=== PATIENT | female | born 1940 | race Caucasian/White ===

== ENCOUNTER 2017-05-15 10:20 | Inpatient (IN) | payer MEDICARE, OTHER ==
[~2017-05-15] VITALS: Ht 157.5 cm; Wt 75.7 kg
[2017-05-15] VITALS (27 sets, daily range): BP systolic 92–148; BP diastolic 46–64; PULSE 46–145; RESP 14–25; Ht 157.5 cm; Wt 75.7 kg
[~2017-05-15 10:20] MED LIST: CEFAZOLIN 2 GM/50 ML (PMX) 50 ML IVPB ONE; SOD CHLORIDE 0.9% 1,000 ML IV ONE
[2017-05-15] MEDS ORDERED: ATEN50TA PO (10:49)
[2017-05-15] MEDS ORDERED: ASPI-664 PO (10:50)
[2017-05-15] MEDS ORDERED: THROMBIN 5000 UNIT VIAL ONE (12:20)
[2017-05-15] MEDS ORDERED: HYDROmorphONE (0.2 MG/ML) 10ML SYG IV PRN ×3 (12:30)
[2017-05-15] MEDS ORDERED: EPHEDrine SULFATE 50 MG/5 ML SYG IV PRN (12:30)
[2017-05-15] MEDS ORDERED: MEPERIDINE 25 MG INJ IV PRN (12:30)
[2017-05-15] MEDS ORDERED: KETOROLAC 30 MG INJ IV PRN (12:30)
[2017-05-15] MEDS ORDERED: FENTAnyl 50 MCG/ML VIAL IV PRN ×3 (12:30)
[2017-05-15] MEDS ORDERED: METOCLOPRAMIDE 10 MG INJ IV PRN (12:30)
[2017-05-15] MEDS ORDERED: hydrALAzine 20 MG INJ IV PRN ×2 (12:30→15:00)
[2017-05-15] MEDS ORDERED: OXYCODONE/ACETAMINOPHEN (5/325) TAB PO PRN ×2 (12:30)
[2017-05-15] MEDS ORDERED: ONDANSETRON 4 MG INJ IV PRN ×2 (12:30→14:30)
[2017-05-15] MEDS ORDERED: LABETALOL HCL 20MG INJ IV PRN (12:30)
[2017-05-15] MEDS ORDERED: DIPHENHYDRAMINE 50 MG INJ IV PRN (12:30)
[2017-05-15] MEDS ORDERED: FENTAnyl 50 MCG/ML VIAL ONE (12:43)
[2017-05-15] MEDS ORDERED: ROCURONIUM 50 MG INJ ONE (12:45)
[2017-05-15] MEDS ORDERED: LIDOCAINE 2% (SDV) 5 ML INJ ONE (12:45)
[2017-05-15] MEDS ORDERED: PROPOFOL 20 ML ONE (12:45)
[2017-05-15] MEDS ORDERED: DEXAMETHASONE 4 MG/ML 1 ML INJ ONE (12:46)
[2017-05-15] MEDS ORDERED: CEFAZOLIN 1 GM INJ ONE (12:48)
[2017-05-15] MEDS ORDERED: ONDANSETRON 4 MG INJ ONE (13:56)
[2017-05-15] MEDS ORDERED: NEOSTIGMINE 3 MG/3 ML SYRINGE ONE (13:58)
[2017-05-15] MEDS ORDERED: GLYCOPYRROLATE 0.4 MG INJ ONE (13:58)
[2017-05-15] MEDS ORDERED: ACETAMINOPHEN 1000MG/100ML IV 100 ML IVPB PRN (14:30)
[2017-05-15] MEDS ORDERED: morphine 2 MG INJ IV PRN (14:30)
[2017-05-15] MEDS: D5W-0.45 NACL + KCL 20 MEQ 1,000 ML IV SCH ×2 (14:44→22:23)
--- NOTE | 2017-05-15 15:40 | HP ---
DATE OF ADMISSION: 05/15/2017 HISTORY OF PRESENT ILLNESS: The patient is a 76-year-old female with past medical history positive for hypertension, hyperlipidemia, cardiac a arrhythmia, arthritis, bladder incontinence and depression. The patient was evaluated for multi- ezio thyroid goiter, hypercalcemia, and diagnosed with hyperparathyroidism. The patient was and was evaluated by Dr. Mackenzie in surgical consultation and patient was brought to the hospital and underwent left neck exploration and parathyroid adenoma excision for left parathyroid adenoma. Postoperatively, the patient experienced significant pain, and patient will be admitted for further evaluation and management. PAST MEDICAL HISTORY: Per HPI. PAST SURGICAL HISTORY: Status post tonsillectomy at this time. FAMILY HISTORY: Noncontributory. SOCIAL HISTORY: Patient lives at home with her family. Patient denies any tobacco use, alcohol use and no illicit drug use. ALLERGIES: NO KNOWN ALLERGIES. MEDICATIONS: Includes aspirin, atenolol, simvastatin and lisinopril and vitamin-D supplements. REVIEW OF SYSTEMS: A 12 point review of system is negative unless mentioned in HPI. PHYSICAL EXAMINATION: GENERAL: Well-developed, well-nourished female, currently is awake, alert. VITAL SIGNS: Temperature is 98, pulse is 57, blood pressure 103/46, respiratory rate 14. Oxygen saturation 98 percent on 2 L nasal cannula. HEENT: Head is atraumatic, normocephalic. Pupils equal, round, reactive to light and accommodation. Oral mucosa is pink and moist. NECK: Supple. The surgical incision at the base of the neck was intact with clean dry dressing. LUNGS: Clear bilaterally. There is no rhonchi, wheezes, rales noted. CARDIAC: Normal S1, S2. No murmurs, gallops, clicks, rubs noted. Regular rate and rate and slightly bradycardic. ABDOMEN: Round, soft, nondistended, nontender. Bowel sounds present. There is no guarding, no rebound tenderness. EXTREMITIES: No edema, clubbing, cyanosis. Pulses equal bilaterally 2+. SKIN: No rash. No petechiae noted. NEUROLOGICAL: Patient is awake, alert, and oriented to name and situation. ASSESSMENT AND PLAN: 1. Left parathyroid adenoma status post-resection. Will continue Tylenol and morphine as needed for pain and Zofran as needed for nausea. Continue IV fluids. Monitor serum calcium level, CMP, and CBC tomorrow. Advance diet per surgical recommendations. 2. Hypertension. Continue atenolol and hydralazine as needed for systolic blood pressure above 170. 3. Hyperlipidemia. 4. Sequential compression device for deep venous thrombosis prophylaxis. 5. Further recommendations based on clinical course. 6. Plan of care discussed with Dr. Spencer. Dictated By: Josefina Grimes NP /dianne/elieser /Document#: [id number]
--- NOTE | 2017-05-15 18:28 | OPR ---
DATE OF OPERATION: 05/15/2017 PREOPERATIVE DIAGNOSIS: Left parathyroid adenoma. POSTOPERATIVE DIAGNOSIS: Left parathyroid adenoma. PROCEDURES: Left neck exploration with resection of left parathyroid adenoma. ANESTHESIA: General. ANESTHESIOLOGIST: Dr. Wright. SURGEON: Dr. Mackenzie. MECHANICAL MANUFACTURING ENGINEER: Dr. Eliseo Yost. INDICATIONS FOR PROCEDURE: The patient is a 76-year-old who female presented with hypercalcemia and evidence of elevated parathormone level. I discussed the case with Dr. Kauffman, her owner professional engineer, who recommended we proceed with a left neck exploration and parathyroid resection of the parathyroid adenoma. The patient consented and was scheduled for surgery. OPERATIVE PROCEDURE: The patient was brought to the operating theater and placed under general anesthesia. The left anterior cervical region was prepped and draped in usual sterile fashion. Planned incision was demarcated with a marking pen approximately 2 cm above the clavicle extending for 4 cm on either side of the midline. It was carried out with 15 blade scalpel. Subcutaneous tissue was dissected with cautery down through the platysma muscles bilaterally. Sub platysmal flaps were then developed with cautery, first superiorly to the hyoid bone, then inferiorly to the clavicle and the sternal notch. The Forrester neck retractor was then placed in the median raphae was then incised longitudinally. This allowed exposure of the under lying strap muscles covering the thyroid gland. With meticulous dissection, the strap muscles were dissected off of the left thyroid lobe. The left thyroid lobe was mobilized from medially. With thorough inspection of a parathyroid adenoma was identified at the superior pole. It was officially resected from the surrounding tissue. Significant vascular structures were controlled with the LigaSure device. It was sent for intraoperative frozen section, performed by attending pathologist, Dr. Gilles Hoover, and it was confirmed that it was hypercellular parathyroid tissue consistent with an adenoma. Dr. Mackenzie then explored the lower pole and a normal parathyroid gland was identified and left in place. The thyroid gland was then put back into its normal anatomic location underneath the strap muscles and final inspection took place. There was no evidence of bleeding. The midline medial raphae was then reapproximated with 4-0 Vicryl sutures in interrupted fashion. The platysma muscles were also reapproximated with 4-0 Vicryl sutures in interrupted fashion. The final skin approximation took place with 5-0 PDS sutures in subcuticular fashion. Benzoin and Steri-Strips were then applied. The patient tolerated the procedure well. ESTIMATED BLOOD LOSS: 20 mL. COMPLICATIONS: There were no complications. The patient was transported in stable condition to the recovery room. Dictated By: Harris Mackenzie MD /dianne/roe /Document#: [id number]
[2017-05-15 19:42] LABS: CALCIUM 10.5 mg/dl (8.4-10.2); CREATININE 0.77 mg/dl (0.44-1.00); MAGNESIUM 1.9 mg/dl (1.7-2.5); POTASSIUM 4.5 mmol/L (3.5-5.1)
[2017-05-16] VITALS (11 sets, daily range): BP systolic 109–131; BP diastolic 56–61; PULSE 48–80; RESP 17–20
[2017-05-16] MEDS: D5W-0.45 NACL + KCL 20 MEQ 1,000 ML IV SCH (06:03)
[2017-05-16 08:42] LABS: BASOPHILS % 0.1 % (0.0-2.0); EOSINOPHILS % 0.1 % (0.0-7.0); HEMATOCRIT 34.9 % (37.0-47.0); LYMPHOCYTES # 0.9 10^3/ul (0.8-2.9); LYMPHOCYTES % 11.1 % (15.0-51.0); MEAN CORPUSCULAR HEMOGLOBIN 30.9 pg (29.0-33.0); MEAN CORPUSCULAR HGB CONC 34.4 g/dl (32.0-37.0); MEAN CORPUSCULAR VOLUME 89.9 fl (82.0-101.0); MEAN PLATELET VOLUME 10.3 fl (7.4-10.4); MONOCYTE # 0.6 10^3/ul (0.3-0.9); NEUTROPHIL # 6.6 10^3/ul (1.6-7.5); NEUTROPHILS % 81.3 % (39.0-77.0); PLATELET COUNT 139 10^3/UL (140-415); RED BLOOD COUNT 3.88 10^6/ul (4.20-5.40); RED CELL DISTRIBUTION WIDTH 12.9 % (11.5-14.5); WHITE BLOOD COUNT 8.2 10^3/ul (4.8-10.8)
[2017-05-16 08:57] LABS: ALBUMIN 3.2 g/dl (3.3-4.9); ALBUMIN/GLOBULIN RATIO 1.18; BILIRUBIN,INDIRECT 2.5 mg/dl (0-1.1); BILIRUBIN,TOTAL 2.5 mg/dl (0.2-1.3); CALCIUM 10.8 mg/dl (8.4-10.2); CREATININE 0.73 mg/dl (0.44-1.00); POTASSIUM 4.4 mmol/L (3.5-5.1); TOTAL PROTEIN 5.9 g/dl (6.1-8.1)
[2017-05-16] MEDS ORDERED: ATENOLOL 50 MG TAB PO SCH (09:00)
--- NOTE | 2017-05-16 13:06 | CONS ---
Date/Time of Note Date/Time of Note DATE: 05/16/17 TIME: 13:04 Assessment/Plan Assessment/Plan Additional Assessment/Plan s/p parathyroid adenoma excision HTN Sinsu bradycardia PVCs -decrease atenolol due to bradycardia but no symptoms s/p HR 39 -no advanced heart block -check electrolytes -will monitor on telemetry Consultation Date/Type/Reason Admit Date/Time May 15, 2017 at 16:03 Hx of Present Illness The patient is a 76-year-old female with past medical history positive for hypertension, hyperlipidemia, cardiac a arrhythmia, arthritis, bladder incontinence and depression. The patient was evaluated for multi- ezio thyroid goiter, hypercalcemia, and diagnosed with hyperparathyroidism. The patient was and was evaluated by Dr. Mackenzie in surgical consultation and patient was brought to the hospital and underwent left neck exploration and parathyroid adenoma excision for left parathyroid adenoma. Postoperatively, the patient experienced significant pain, and patient will be admitted for further evaluation and management. The patient had sinus bradycardia and occasional pvcs with no sycnope or dizziness Social History Smoking Status: Never smoker Exam/Review of Systems Vital Signs Vitals Vital Signs Date Time Temp Pulse Resp B/P Pulse Ox O2 Delivery O2 Flow Rate FiO2 05/16/17 12:26 54 05/16/17 11:25 97.8 17 119/56 98 05/16/17 00:00 Nasal Cannula 2.0 Intake and Output 05/15/17 05/15/17 05/16/17 15:00 23:00 07:00 Intake Total 600 ml 688 ml 938 ml Output Total 15 ml Balance 585 ml 688 ml 938 ml Results Result Diagram: 05/16/17 0757 05/16/17 0757 Results 24 hrs Laboratory Tests Test 05/15/17 18:46 05/16/17 00:41 05/16/17 07:57 Sodium Level 142 139 Potassium Level 4.5 4.4 Chloride Level 110 109 Carbon Dioxide Level 25 26 Anion Gap 12 8 Blood Urea Nitrogen 16 12 Creatinine 0.77 0.73 Glucose Level 159 113 # Calcium Level 10.5 H 10.7 H 10.8 H Magnesium Level 1.9 White Blood Count 8.2 Red Blood Count 3.88 L Hemoglobin 12.0 Hematocrit 34.9 L Mean Corpuscular Volume 89.9 Mean Corpuscular Hemoglobin 30.9 Mean Corpuscular Hemoglobin Concent 34.4 Red Cell Distribution Width 12.9 Platelet Count 139 L Mean Platelet Volume 10.3 Neutrophils % 81.3 H Lymphocytes % 11.1 L Monocytes % 7.0 Eosinophils % 0.1 Basophils % 0.1 Nucleated Red Blood Cells % 0.0 Neutrophils # 6.6 Lymphocytes # 0.9 Monocytes # 0.6 Eosinophils # 0.0 Basophils # 0.0 Nucleated Red Blood Cells # 0.0 Total Bilirubin 2.5 H Direct Bilirubin 0.00 Indirect Bilirubin 2.5 H Aspartate Amino Transf (AST/SGOT) 16 Alanine Aminotransferase (ALT/SGPT) 27 Alkaline Phosphatase 110 Total Protein 5.9 L Albumin 3.2 L Globulin 2.70 Albumin/Globulin Ratio 1.18 Medications Medications Current Medications Ondansetron HCl 4 mg 4 mg Q6H PRN IV NAUSEA AND/OR VOMITING; Start 05/15/17 at 14:30 Potassium Chloride/Dextrose/ Sod Cl (D5-1/2ns + KCl 20 Meq) 1,000 ml @ 125 mls/ hr Q8H IV Last administered on 05/16/17 06:03; Admin Dose 125 MLS/HR; Start 05/15/17 at 14:07 Morphine Sulfate 2 mg 2 mg Q1H PRN IV PAIN; Start 05/15/17 at 14:30 Acetaminophen (Ofirmev 1000mg/ 100ml Iv) 100 ml @ 400 mls/hr Q6H PRN IVPB PAIN ; Start 05/15/17 at 14:30 Hydralazine HCl (Apresoline) 10 mg Q6H PRN IV SBP>170; Start 05/15/17 at 15:00 Atenolol (Tenormin) 50 mg BID PO Last administered on 05/16/17 08:27; Admin Dose 50 MG; Start 05/16/17 at 09:00 TITUS THORNE MD May 16, 2017 13:06
--- NOTE | 2017-05-16 14:05 | PN ---
Date/Time of Note Date/Time of Note DATE: 05/16/17 TIME: 14:01 Assessment/Plan VTE Prophylaxis VTE Prophylaxis Intervention: SCD's Lines/Catheters IV Catheter Type (from Nrs): Peripheral IV Assessment/Plan Chief Complaint/Hosp Course Patient was transferred to telemetry floor yesterday due to cardiac arrhythmia, patient denies any chest pain, sinus rhythm on telemetry with occasional PVCs. Incisional pain is well controlled, patient get out of bed to sit in the chair, advance diet per surgery, encourage out of bed and ambulation. Problems: Assessment/Plan 1. Left parathyroid adenoma status post-resection. Will continue Tylenol and morphine as needed for pain and Zofran as needed for nausea. Continue IV fluids. Monitor serum calcium level, CMP, and CBC tomorrow. Advance diet per surgical recommendations. 2. Hypertension. Continue atenolol and hydralazine as needed for systolic blood pressure above 170. 3. Hyperlipidemia. 4. Sinus bradycardia with frequent PVCs, pending an 2D echo, continue telemetry monitoring, Dr Baird is following in cardiology consultation. Further recommendations based on clinical course. Plan of care discussed with Dr. Spencer. Exam/Review of Systems Vital Signs Vitals Vital Signs Date Time Temp Pulse Resp B/P Pulse Ox O2 Delivery O2 Flow Rate FiO2 05/16/17 12:26 54 05/16/17 11:25 97.8 17 119/56 98 05/16/17 00:00 Nasal Cannula 2.0 Intake and Output 05/15/17 05/15/17 05/16/17 15:00 23:00 07:00 Intake Total 600 ml 688 ml 938 ml Output Total 15 ml Balance 585 ml 688 ml 938 ml Results Result Diagram: 05/16/17 0757 05/16/17 0757 Results 24 hrs Laboratory Tests Test 05/15/17 18:46 05/16/17 00:41 05/16/17 07:57 Sodium Level 142 139 Potassium Level 4.5 4.4 Chloride Level 110 109 Carbon Dioxide Level 25 26 Anion Gap 12 8 Blood Urea Nitrogen 16 12 Creatinine 0.77 0.73 Glucose Level 159 113 # Calcium Level 10.5 H 10.7 H 10.8 H Magnesium Level 1.9 White Blood Count 8.2 Red Blood Count 3.88 L Hemoglobin 12.0 Hematocrit 34.9 L Mean Corpuscular Volume 89.9 Mean Corpuscular Hemoglobin 30.9 Mean Corpuscular Hemoglobin Concent 34.4 Red Cell Distribution Width 12.9 Platelet Count 139 L Mean Platelet Volume 10.3 Neutrophils % 81.3 H Lymphocytes % 11.1 L Monocytes % 7.0 Eosinophils % 0.1 Basophils % 0.1 Nucleated Red Blood Cells % 0.0 Neutrophils # 6.6 Lymphocytes # 0.9 Monocytes # 0.6 Eosinophils # 0.0 Basophils # 0.0 Nucleated Red Blood Cells # 0.0 Total Bilirubin 2.5 H Direct Bilirubin 0.00 Indirect Bilirubin 2.5 H Aspartate Amino Transf (AST/SGOT) 16 Alanine Aminotransferase (ALT/SGPT) 27 Alkaline Phosphatase 110 Total Protein 5.9 L Albumin 3.2 L Globulin 2.70 Albumin/Globulin Ratio 1.18 Medications Medications Current Medications Ondansetron HCl (Zofran Inj) 4 mg Q6H PRN IV NAUSEA AND/OR VOMITING; Start 05/15/17 at 14:30 Morphine Sulfate 2 mg 2 mg Q1H PRN IV PAIN; Start 05/15/17 at 14:30 Acetaminophen (Ofirmev 1000mg/ 100ml Iv) 100 ml @ 400 mls/hr Q6H PRN IVPB PAIN ; Start 05/15/17 at 14:30 Hydralazine HCl (Apresoline) 10 mg Q6H PRN IV SBP>170; Start 05/15/17 at 15:00 Atenolol (Tenormin) 50 mg BID PO Last administered on 05/16/17t 08:27; Admin Dose 50 MG; Start 05/16/17 at 09:00 NUHA FOWLER May 16, 2017 14:05
--- NOTE | 2017-05-16 17:54 | PN ---
DATE: 05/16/2017 CHIEF COMPLAINT: Postop day number 1 status post left parathyroid adenoma resection. SUBJECTIVE DATA: No complaint. Tolerated diet. No problems swallowing. No fever. No nausea, no vomiting. OBJECTIVE: VITAL SIGNS: Temperature 97.8, heart rate 54, sinus rhythm, bradycardia, respirations 17, blood pressure 119/56, saturation 98 percent room air. LABORATORY AND DIAGNOSTIC DATA: WBC 8200, with 81 percent segmented, hemoglobin 12, hematocrit 34.9. Chemistry: Sodium, potassium normal. BUN and creatinine normal. Calcium has been tested on several occasions since operation, always is above 10. The last one today morning at 7:50 a.m. is 10.8. Total bilirubin is 2.5, high; direct bilirubin 0, indirect bilirubin 2.5. Albumin 3.2, total protein 5.9. PHYSICAL EXAMINATION: GENERAL: Patient is alert, awake, oriented. HEART: Regular at this time. NECK: Dressing is intact was removed. Wound is clean and intact. There is no change. ASSESSMENT AND PLAN: This is a 76-year-old lady who was found to have calcium level above 11. Evaluation revealed presence of left upper pole parathyroid adenoma, possibly also left lower lobe. Patient underwent exploration yesterday and left upper lobe parathyroid adenoma was found, excised and cultured by frozen section. Postop, patient was doing fine in the recovery room and on the floor. Patient had arrhythmia, tachycardia and bradycardia. For that reason, patient was transferred to telemetry. EKG was done. Stem Roller has seen the patient. Impression was sinus bradycardia with sinus rhythm. Patient is on atenolol 50 mg b.i.d., has been at home. Stem Roller, Dr. Baird has ordered echocardiogram. Patient is being under control, monitored on telemetry. Will keep the patient at least one more day. We are going to repeat calcium tomorrow. Dictated By: Eliseo Yost MD /dianne/quincy /Document#: [id number]
[2017-05-16] MEDS: ATENOLOL 25 MG TAB PO SCH (21:35)
[2017-05-17] VITALS (12 sets, daily range): BP systolic 122–164; BP diastolic 57–80; PULSE 59–78; RESP 17–20
[2017-05-17 08:33] LABS: BASOPHILS % 0.6 % (0.0-2.0); EOSINOPHILS # 0.2 10^3/ul (0.0-0.5); EOSINOPHILS % 3.4 % (0.0-7.0); HEMATOCRIT 34.3 % (37.0-47.0); HEMOGLOBIN 11.5 g/dl (12.0-16.0); LYMPHOCYTES # 1.6 10^3/ul (0.8-2.9); LYMPHOCYTES % 30.1 % (15.0-51.0); MEAN CORPUSCULAR HEMOGLOBIN 30.7 pg (29.0-33.0); MEAN CORPUSCULAR HGB CONC 33.5 g/dl (32.0-37.0); MEAN CORPUSCULAR VOLUME 91.7 fl (82.0-101.0); MEAN PLATELET VOLUME 10.3 fl (7.4-10.4); MONOCYTE # 0.5 10^3/ul (0.3-0.9); MONOCYTES % 8.5 % (0.0-11.0); NEUTROPHILS % 57.2 % (39.0-77.0); PLATELET COUNT 106 10^3/UL (140-415); RED BLOOD COUNT 3.74 10^6/ul (4.20-5.40); RED CELL DISTRIBUTION WIDTH 13.2 % (11.5-14.5); RETICULOCYTE COUNT % 1.6 % (0.5-1.5); WHITE BLOOD COUNT 5.3 10^3/ul (4.8-10.8)
[2017-05-17] MEDS: ATENOLOL 25 MG TAB PO SCH ×2 (08:54→20:33)
[2017-05-17 08:58] LABS: ALBUMIN 3.1 g/dl (3.3-4.9); ALBUMIN/GLOBULIN RATIO 1.1; CALCIUM 10.3 mg/dl (8.4-10.2); CREATININE 0.83 mg/dl (0.44-1.00); POTASSIUM 4.1 mmol/L (3.5-5.1); TOTAL PROTEIN 5.9 g/dl (6.1-8.1)
[2017-05-17 09:27] LABS: THYROID STIMULATING HORMONE 0.052 MIU/L (0.465-4.680)
--- NOTE | 2017-05-17 11:28 | CONS ---
Date/Time of Note Date/Time of Note DATE: 05/17/17 TIME: 11:27 Assessment/Plan Assessment/Plan Additional Assessment/Plan Asymptomatic bradycardia Status post surgery -Patient denies symptoms of palpitations, dizziness, shortness of breath or lightheadedness. No significant arrhythmias seen on telemetry. No need for pacemaker at the current time. Consultation Date/Type/Reason Admit Date/Time May 15, 2017 at 16:03 Initial Consult Date Type of Consultation: cv 24 HR Interval Summary Free Text/Dictation Denies palpitations, dizziness, shortness of breath. Ambulating in the hallways and denies any symptoms of dizziness or palpitations Exam/Review of Systems Vital Signs Vitals Vital Signs Date Time Temp Pulse Resp B/P Pulse Ox O2 Delivery O2 Flow Rate FiO2 05/17/17 11:07 98.1 61 17 129/80 95 05/16/17 21:39 21 05/16/17 17:34 2.0 05/16/17 00:00 Nasal Cannula Intake and Output 05/16/17 05/16/17 05/17/17 15:00 23:00 07:00 Intake Total 875 ml 440 ml 800 ml Balance 875 ml 440 ml 800 ml Exam No apparent distress Constitutional: alert, oriented Head: normocephalic Respiratory: other (Coarse breath sounds bilaterally, no wheezing) Cardiovascular: other (S1-S2 heard), regular rate and rhythm Gastrointestinal: bowel sounds, non-tender, soft Extremities: other (No significant edema) Results Result Diagram: 05/17/17 0741 05/17/17 0741 Results 24 hrs Laboratory Tests Test 05/17/17 07:41 White Blood Count 5.3 # Red Blood Count 3.74 L Hemoglobin 11.5 L Hematocrit 34.3 L Mean Corpuscular Volume 91.7 Mean Corpuscular Hemoglobin 30.7 Mean Corpuscular Hemoglobin Concent 33.5 Red Cell Distribution Width 13.2 Platelet Count 106 #L Mean Platelet Volume 10.3 Neutrophils % 57.2 Lymphocytes % 30.1 Monocytes % 8.5 Eosinophils % 3.4 Basophils % 0.6 Nucleated Red Blood Cells % 0.0 Neutrophils # 3.0 Lymphocytes # 1.6 Monocytes # 0.5 Eosinophils # 0.2 Basophils # 0.0 Nucleated Red Blood Cells # 0.0 Absolute Reticulocyte Count 0.062 Percent Reticulocyte Count 1.6 H Sodium Level 140 Potassium Level 4.1 Chloride Level 108 Carbon Dioxide Level 29 Anion Gap 7 L Blood Urea Nitrogen 13 Creatinine 0.83 Glucose Level 88 Calcium Level 10.3 H Magnesium Level 2.0 Total Bilirubin 2.0 H Direct Bilirubin 0.00 Indirect Bilirubin 2.0 H Aspartate Amino Transf (AST/SGOT) 19 Alanine Aminotransferase (ALT/SGPT) 28 Alkaline Phosphatase 110 Lactate Dehydrogenase 354 Total Protein 5.9 L Albumin 3.1 L Globulin 2.80 Albumin/Globulin Ratio 1.10 Thyroid Stimulating Hormone (TSH) 0.052 L Free Thyroxine 1.50 Medications Medications Current Medications Ondansetron HCl (Zofran Inj) 4 mg Q6H PRN IV NAUSEA AND/OR VOMITING; Start 05/15/17 at 14:30 Morphine Sulfate 2 mg 2 mg Q1H PRN IV PAIN; Start 05/15/17 at 14:30 Acetaminophen (Ofirmev 1000mg/ 100ml Iv) 100 ml @ 400 mls/hr Q6H PRN IVPB PAIN ; Start 05/15/17 at 14:30 Hydralazine HCl (Apresoline) 10 mg Q6H PRN IV SBP>170; Start 05/15/17 at 15:00 Atenolol (Tenormin) 25 mg BID PO Last administered on 05/17/17t 08:54; Admin Dose 25 MG; Start 05/16/17 at 21:00 Davy Trejo DO May 17, 2017 11:28
[2017-05-17] MEDS ORDERED: ATEN-51 PO (12:22)
[2017-05-17] MEDS ORDERED: CEPASTAT LOZENGE MT PRN (12:30)
--- NOTE | 2017-05-17 13:24 | CONS ---
DATE OF ADMISSION: 05/15/2017 DATE OF CONSULTATION: HISTORY OF PRESENT ILLNESS: A 76-year-old female with a history of hypercalcemia was diagnosed with parathyroid adenoma, for which she had a surgery done by Dr. Mackenzie, adenoma was removed and postope ratively patient had some pain and also she was bradycardic. GI consult was called in for the incre ased bilirubin which is 2.52. Patient denies any abdominal pain. She occasionally gets heartburn, no nausea, no vomiting, no chest pain, no shortness of breath. PAST SURGICAL HISTORY: Tonsillectomy. FAMILY HISTORY: Nothing contributory. SOCIAL HISTORY: No alcohol. No smoking, no illicit drugs. ALLERGIES: NONE. MEDICATIONS: All reviewed. REVIEW OF SYSTEMS: Otherwise negative. PHYSICAL EXAMINATION: GENERAL: Well-built, nourished, not in distress. VITAL SIGNS: Stable. HEENT: Unremarkable. NECK: Supple, no thyromegaly, no lymphadenopathy. CARDIOVASCULAR: No murmur, gallop or click. LUNGS: Clear. ABDOMEN: Benign. EXTREMITIES: No edema. CENTRAL NERVOUS SYSTEM: Grossly within normal limits. Calcium is 10.3 today. Bilirubin has droppe d down from 2.5 to 2. The rest of LFTs within normal limits. Hematocrit is 34. IMPRESSION: 1. Status post left parathyroid adenoma resection. 2. Hypercalcemia. 3. Hypertension. 4. Hyperlipidemia. 5. Sinus bradycardia. 6. Jaundice, it is a total indirect hyperbilirubinemia. 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 I spoke to the daughter, the patient had an extensive workup. She had a sonogram of the liver a few months ago, which was normal. PLAN: Reassure the patient. No further workup for indirect bilirubinemia. If will go up when the patient is fasting, and if you repeat the bilirubin after being fed, it may drop down. Dictated By: WILDA FIERRO/JAIRON Conf#: [id number] DID#: [id number]
--- NOTE | 2017-05-17 13:27 | RADRPT ---
Echocardiogram Report Patient Name: AVELINO LI Gender: Female Date: 1940 Study Date: 16-May-2017 Cnc Service Technician: Cecilia Garcia [facility] Location: [id number] Ref. Physician: TITUS THORNE Quality: Adequate Procedures: Transthoracic echocardiogram with complete 2D, M-Mode, and doppler examination. Indications: Arrythmia. 2D/M Mode Doppler Measurement Value Normal Ranges Measurement Value Normal Ranges LVIDd 2D 3.7 3.5 - 5.6 cm AV Peak [place] 1.9 m/sec LVIDs 2D 2.1 2.1 - 4.1 cm AV Peak PG 13.8 mmHg LVPWd 2D 1.0 0.6 - 1.1 cm LVOT Peak [place] 1.3 m/sec IVSd 2D 1.0 0.6 - 1.1 cm LVOT Peak PG 7.2 mmHg AoR Diam 2D 2.3 2.0 - 3.7 cm MV E Peak [place] 0.8 m/sec EDV 2D 58.4 cm3 MV A Peak [place] 1.0 m/sec ESV 2D 9.8 cm3 MV E/A 0.8 LA Dimen 2D 3.7 2.3 - 4.0 cm MV Decel Time 202 msec MV Decel Wells 4 MV E/A 0.8 TR Peak Gordo 2.7 m/sec TR Peak PG 29.7 mmHg RVSP 45.0 mmHg Findings Left Ventricle: Normal left ventricular systolic function. Normal left ventricular cavity size. Normal left ventricular wall thickness. Ejection fraction is visually estimated at 65 %. Tissue Doppler/Mitral Doppler indices are consistent with impaired relaxation (Stage I diastolic dysfunction). Right Ventricle: Normal right ventricular size. Normal right ventricular systolic function. Left Atrium: The left atrium is normal in size. Right Atrium: The right atrium is normal in size. Mitral Valve: Mild mitral leaflet calcification. Mild mitral annular calcification. Mild mitral valve regurgitation. Aortic Valve: No significant aortic stenosis or insufficiency. Aortic cusps appear mildly calcified. Tricuspid Valve: Normal appearance of the tricuspid valve. Estimated peak PA systolic pressure 45 mmHg. There is mild tricuspid regurgitation. Pulmonic Valve: Normal pulmonic valve appearance. Pericardium: Normal pericardium with no significant pericardial effusion. Aorta: Normal aortic root. IVC: Dilated IVC without respiratory collapse consistent with elevated right atrial pressure. Conclusions 1.Normal left ventricular systolic function. Normal left ventricular cavity size. Normal left ventricular wall thickness. Ejection fraction is visually estimated at 65 %. Tissue Doppler/Mitral Doppler indices are consistent with impaired relaxation (Stage I diastolic dysfunction). 2.Normal right ventricular size. Normal right ventricular systolic function. 3.The left atrium is normal in size. 4.The right atrium is normal in size. 5.Mild mitral valve regurgitation. 6.No significant aortic stenosis or insufficiency. 7.Estimated peak PA systolic pressure 45 mmHg. There is mild tricuspid regurgitation. 8.Normal pericardium with no significant pericardial effusion. Electronically Signed By: Davy Trejo 17-May-2017 13:27:10 -0700 Patient Name: AVELINO LI Study Date: 16-May-2017 [id number]
--- NOTE | 2017-05-17 16:53 | PN ---
DATE: 05/17/2017 FOLLOWUP PROGRESS NOTE SUBJECTIVE: No complaint. No nausea, vomiting, no fever. Has had a bowel movement, tolerating t, no problems swallowing. OBJECTIVE: VITAL SIGNS: Stable, alert, awake, oriented. Temperature 98.1, heart rate 59, sinus rhythm, respir ations 17, blood pressure 129/80, saturation 95% on room air. LABORATORY: WBC 5300 with 53% neutrophils and 7% segmented. Chemistry: Sodium, potassium normal. BUN and creatinine normal. Calcium dropped down from 10.8 to 10.3 today as stated. It shows that it is high on the lab here. Bilirubin dropped from 2.5 total and indirect bilirubin 2. T4 is within normal limits. Thyroid stimulating hormone is low at 0.052. PHYSICAL EXAMINATION: Dressing was checked and dressing is intact. The wound is clean. HEART: Regular. LUNGS: Clear. ABDOMEN: Soft. ASSESSMENT AND PLAN: A 76-year-old female who was diagnosed with hypercalcemia and parathyroid casimiro bel in the left upper pole, possibly some adenoma in left lower pole. The patient underwent explora tion of her adenoma. It was found and was removed and sent for pathologic evaluation for adenoma. At this time, it appeared to be a normal sized thyroid. Post surgery, the patient was doing fine ex cept that there was arrhythmia, bradycardia and tachycardia. He was seen by contracting officer and they r ecommended to decrease Atenolol that the patient used to take at home from 50 mg b.i.d. to 5 mg b.i. d. Calcium dropped gradually from 11 which was before the operation and today it is 10.3, but still is high. From a surgical point of view, the patient can be discharged home if it is okay with card iologist and cardiac rehabilitation specialist. When she goes home, she will call Dr. Mackenzie' office and make an appointment to followup by Dr. Mackenzie. Instructions given to the patient's son and the patient's daughter. Dictated By: NEYMAR TORRES/JAIRON Conf#: [id number] DID#: [id number]
[2017-05-18] VITALS (10 sets, daily range): BP systolic 118–163; BP diastolic 57–81; PULSE 62–79; RESP 17–20
--- NOTE | 2017-05-18 08:14 | PN ---
Date/Time of Note Date/Time of Note DATE: 05/18/17 TIME: 08:13 Assessment/Plan VTE Prophylaxis VTE Prophylaxis Intervention: SCD's Lines/Catheters IV Catheter Type (from [facility]): [place] Assessment/Plan Chief Complaint/Hosp Course The patient is a 76-year-old female with past medical history positive for hypertension, hyperlipidemia, cardiac a arrhythmia, arthritis, bladder incontinence and depression. The patient was evaluated for multi- ezio thyroid goiter, hypercalcemia, and diagnosed with hyperparathyroidism. The patient was and was evaluated by Dr. Mackenzie in surgical consultation and patient was brought to the hospital and underwent left neck exploration and parathyroid adenoma excision for left parathyroid adenoma. Postoperatively, the patient experienced significant pain, and patient will be admitted for further evaluation and management. The patient had sinus bradycardia and occasional pvcs with no sycnope or dizziness Problems: Assessment/Plan Asymptomatic bradycardia Status post surgery -Patient denies symptoms of palpitations, dizziness, shortness of breath or lightheadedness. No significant arrhythmias seen on telemetry. No need for pacemaker at the current time. Subjective 24 Hr Interval Summary Free Text/Dictation The patient doing well and no compaints Exam/Review of Systems Vital Signs Vitals Vital Signs Date Time Temp Pulse Resp B/P Pulse Ox O2 Delivery O2 Flow Rate FiO2 05/18/17 07:27 98.5 60 18 133/59 92 05/16/17 21:39 21 05/16/17 17:34 2.0 05/16/17 00:00 Nasal Cannula Intake and Output 05/17/17 05/17/17 05/18/17 15:00 23:00 07:00 Intake Total 800 ml 240 ml Balance 800 ml 240 ml Results Result Diagram: 05/17/17 0741 05/17/17 0741 Medications Medications Current Medications Ondansetron HCl (Zofran Inj) 4 mg Q6H PRN IV NAUSEA AND/OR VOMITING; Start 05/15/17 at 14:30 Morphine Sulfate 2 mg 2 mg Q1H PRN IV PAIN; Start 05/15/17 at 14:30 Acetaminophen (Ofirmev 1000mg/ 100ml Iv) 100 ml @ 400 mls/hr Q6H PRN IVPB PAIN ; Start 05/15/17 at 14:30 Hydralazine HCl (Apresoline) 10 mg Q6H PRN IV SBP>170; Start 05/15/17 at 15:00 Atenolol (Tenormin) 25 mg BID PO Last administered on 05/17/17t 20:33; Admin Dose 25 MG; Start 05/16/17 at 21:00 Phenol (Cepastat Lozenge) 1 lozenge Q1H PRN MT sore throat; Start 05/17/17 at 12:30 TITUS THORNE MD May 18, 2017 08:14
[2017-05-18] MEDS: ATENOLOL 25 MG TAB PO SCH (08:35)
--- NOTE | 2017-05-18 09:15 | RADRPT ---
Vent Rate: 51 bpm RR Interval: 0 msec [place] Interval: 144 msec QRS Duration: 68 msec QT Interval: 454 msec QTC Interval: 418 msec P-R-T [place]: 58 - 35 - 39 degrees Sinus bradycardia Low voltage QRS Borderline ECG Electronically Signed By: Yash Garcia [id number]
--- NOTE | 2017-05-18 11:23 | CONS ---
Date/Time of Note Date/Time of Note DATE: 05/18/17 TIME: 11:22 Assessment/Plan Assessment/Plan Additional Assessment/Plan IMPRESSION: 1. Status post left parathyroid adenoma resection. 2. Hypercalcemia. 3. Hypertension. 4. Hyperlipidemia. 5. Sinus bradycardia. 6. Jaundice, it is a totally indirect hyperbilirubinemia. 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 I spoke to the daughter, patient had an extensive workup. She had a sonogram of the liver a few months ago, which was normal. PLAN: Reassure the patient. No further workup for indirect bilirubinemia. It will go up when the patient is fasting, and if you repeat the bilirubin after being fed, it may drop down. We will see patient as needed Consultation Date/Type/Reason Admit Date/Time May 15, 2017 at 16:03 Initial Consult Date Type of Consultation: cv 24 HR Interval Summary Constitutional: improved, no complaints Exam/Review of Systems Vital Signs Vitals Vital Signs Date Time Temp Pulse Resp B/P Pulse Ox O2 Delivery O2 Flow Rate FiO2 05/18/17 08:17 68 05/18/17 07:27 98.5 18 133/59 92 05/16/17 21:39 21 05/16/17 17:34 2.0 05/16/17 00:00 Nasal Cannula Intake and Output 05/17/17 05/17/17 05/18/17 15:00 23:00 07:00 Intake Total 800 ml 240 ml Balance 800 ml 240 ml Exam Constitutional: alert, oriented, well developed Psych: nl mood/affect, no complaints Head: atraumatic, normocephalic Eyes: EOMI, PERRL, nl conjunctiva, nl lids, nl sclera ENMT: nl external ears & nose, nl lips & teeth, nl nasal mucosa & septum Neck: non-tender, supple Respiratory: clear to auscultation, normal air movement Cardiovascular: nl pulses, regular rate and rhythm Gastrointestinal: nl liver, spleen, non-tender, soft Musculoskeletal: nl extremities to inspection, nl gait and stance Extremities: normal pulses Neurological: CARRIAGE FEEDER II-XII intact, nl mental status, nl speech, nl strength Skin: nl turgor, No rash or lesions Lymph: nl lymph nodes Results Result Diagram: 05/17/17 0741 05/17/17 0741 Medications Medications Current Medications Ondansetron HCl (Zofran Inj) 4 mg Q6H PRN IV NAUSEA AND/OR VOMITING; Start 05/15/17 at 14:30 Morphine Sulfate 2 mg 2 mg Q1H PRN IV PAIN; Start 05/15/17 at 14:30 Acetaminophen (Ofirmev 1000mg/ 100ml Iv) 100 ml @ 400 mls/hr Q6H PRN IVPB PAIN ; Start 05/15/17 at 14:30 Hydralazine HCl (Apresoline) 10 mg Q6H PRN IV SBP>170; Start 05/15/17 at 15:00 Atenolol (Tenormin) 25 mg BID PO Last administered on 05/18/17t 08:35; Admin Dose 25 MG; Start 05/16/17 at 21:00 Phenol (Cepastat Lozenge) 1 lozenge Q1H PRN MT sore throat; Start 05/17/17 at 12:30 WILDA MERINO MD May 18, 2017 11:23
--- NOTE | 2017-05-18 17:29 | PDOCDIS ---
Discharge Instructions CONDITION Patient Condition: Stable HOME CARE INSTRUCTIONS: Special Diet: REGULAR ACTIVITY: Activity Restrictions: Slowly Increase Activity Rest between Activity Avoid heavy lifting Do not Drive Do not operate Machinery Do not operate Power Tool Avoid Heavy Housework Bathing Restrictions: Sponge Bath FOLLOW UP/APPOINTMENTS Follow-up Plan FU with PMD x 1week Fu with surgery as recommended Call 911 or go to the nearest hospital if symptoms get worse Plan of care anival Hunter/ staff/ family- verbalized understanding dc instructions. MARY KELLEY May 18, 2017 17:29
== END 2017-05-18 18:20 | disposition home or self-care (01) | DRG 627 ==
LOC: SDS 10:20 → MS1 14:19 → SDS 15:01 → MS1 15:01 → UNDOFXSDCSVC 15:01 → OBSVTOIN 16:03 → TEL 19:21
PROVIDERS: ADMIT Surgery Surgical Oncology; ATTEND Surgery Surgical Oncology
PROC: 0GTM0ZZ Resection of Left Superior Parathyroid Gland, Open Approach (ICD-10-PCS; principal; 2017-05-15 12:00)
DX: D35.1 Benign neoplasm of parathyroid gland (principal); R00.1 Bradycardia, unspecified; E83.52 Hypercalcemia; I10 Essential (primary) hypertension; T44.7X5A Adverse effect of beta-adrenoreceptor antagonists, initial encounter; I49.3 Ventricular premature depolarization; E80.4 Gilbert syndrome
CPT/HCPCS: 80048; 80053; 82310; 83615; 83735; 84439; 84443; 85025; 85045; 88307; 88331; 93005; 93306; G0378; J0690; J1100; J1170; J2175; J2405; J2710; J3010; J3480